=== PATIENT | female | born 1950 | race African-American/Black ===

== ENCOUNTER 2017-01-27 06:09 | Inpatient (IN) ==
[2017-01-27] MEDS ORDERED: ALBUTEROL 2.5 MG/3 ML NEB RESP TX STA (06:30)
[2017-01-27] MEDS ORDERED: predniSONE 20 MG TABLET PO STA (06:30)
[2017-01-27] MEDS ORDERED: ALBUTEROL 2.5 MG/3 ML NEB RESP TX ONE (07:09)
[2017-01-27 07:22] LABS: Basophils % 0.2 % (0.0-0.8); Eosinophils % 0.2 % (0.00-10.9); Hematocrit 38.1 VOL% (35.7-47.0); Hemoglobin 12.6 GM/DL (12.0-16.0); Immature Granulocytes % 0.4 %; Immature Granulocytes Absolute 0.02 #; Lymphocytes % 18.3 % (21.3-54.2); Mean Corpuscular HGB Conc 33.1 GM/DL (32-36); Mean Corpuscular Hemoglobin 30 PG (27-34); Mean Corpuscular Volume 89.6 FL (87-102); Mean Platelet Volume 10.2 FL (9.6-12.0); Monocytes # 0.4 10*3/uL (0.11-0.8); Monocytes % 6.2 % (1.7-12.7); Neutrophils # 4.2 10*3/uL (1.4-7.4); Neutrophils % 74.7 % (38.7-73.9); Platelet Count 200 T/CUMM (130-400); Red Blood Count 4.25 MC/CUMM (3.8-5.5); Red Cell Distribution Width 14.3 % (9.3-17.3); White Blood Count 5.7 T/CUMM (4-12)
[2017-01-27 08:11] LABS: Osmolality,Calculated 280.8 MOS/KG (273-304); Potassium 3.5 MMOL/L (3.5-5.1)
[2017-01-27] MEDS ORDERED: ACETAMINOPHEN 500 MG TABLET ONE (09:38)
[2017-01-27] MEDS ORDERED: ACETAMINOPHEN 500 MG TABLET PO STA (09:42)
[2017-01-27] MEDS ORDERED: predniSONE 20 MG TABLET ONE (09:44)
[2017-01-27] MEDS ORDERED: DILTIAZEM 100 MG VIAL.ADD IV ONE (10:13)
[2017-01-27] MEDS ORDERED: DILTIAZEM 50 MG/10 ML VIAL IV ONE (10:13)
[2017-01-27 10:23] LABS: Allen Test Positive
[2017-01-27 10:24] LABS: ABG Base Excess 5.7 MMOL/L (-2.5-2.5); ABG HCO3 29.6 MMOL/L (20-26); ABG Oxygen Saturation 95.5 % (95-100); ABG PCO2 50.6 MM HG (35-48); ABG PH 7.405 (7.35-7.45); ABG PO2 78.6 MM HG (80-95); ABG TCO2 28.1 MMOL/L (23-27)
[2017-01-27] MEDS ORDERED: ACETAMINOPHEN 325 MG TABLET PO PRN (11:15)
[2017-01-27] MEDS ORDERED: GLUCAGON 1 MG VIAL IM PRN (11:15)
[2017-01-27] MEDS ORDERED: MORPHINE 2 MG/1 ML SYRINGE IV PRN (11:15)
[2017-01-27] MEDS ORDERED: diphenhydrAMINE CAP 25 MG CAPSULE PO PRN (11:15)
[2017-01-27] MEDS ORDERED: ALBUTEROL 2.5 MG/3 ML NEB RESP TX PRN (11:15)
[2017-01-27] MEDS ORDERED: DEXTROSE 50% 25 GM/50 ML VIAL IV PRN (11:15)
[2017-01-27] MEDS ORDERED: DOCUSATE SODIUM 100 MG CAPSULE PO PRN (11:15)
[2017-01-27] MEDS ORDERED: ONDANSETRON 4 MG/2 ML VIAL IV PRN (11:15)
[2017-01-27] MEDS: ALBUTEROL/IPRATROPIUM 3 ML NEB RESP TX SCH ×2 (13:50→19:25)
[2017-01-27] MEDS ORDERED: SODIUM CHLORIDE 0.9% 1,000 ML IV SCH (14:00)
[2017-01-27] MEDS: ALLOPURINOL 100 MG TABLET PO SCH (14:07)
[2017-01-27] MEDS: ASPIRIN EC 81 MG TABLET PO SCH (14:07)
[2017-01-27] MEDS: LOSARTAN 50 MG TABLET PO SCH (14:07)
[2017-01-27] MEDS: BENZONATATE 100 MG CAPSULE PO SCH ×2 (14:07→22:33)
[2017-01-27] MEDS: PANTOPRAZOLE 40 MG TABLET PO SCH (14:08)
[2017-01-27] MEDS: FOLIC ACID 1 MG TABLET PO SCH (14:08)
[2017-01-27] MEDS: glipiZIDE 10 MG TABLET PO SCH (14:08)
[2017-01-27] MEDS: FUROSEMIDE 80 MG TABLET PO SCH (14:08)
[2017-01-27] MEDS: cefTRIAXone 1,000 MG in SYRINGE 1 EACH IV SCH (16:10)
[2017-01-27] MEDS: VERAPAMIL SR 180 MG TABLET PO SCH (16:13)
[2017-01-27] MEDS: AZITHROMYCIN INJ 500 MG in SODIUM CHLORIDE 0.9% 250 ML IV SCH (16:15)
[2017-01-27] MEDS: methylPREDNISolone SOD SUC 40 MG/1 ML VIAL IV SCH ×2 (17:20→22:40)
[2017-01-27] MEDS: INSULIN LISPRO 100 UNIT/ML SUBCUT SCH (17:20)
[2017-01-27] MEDS ORDERED: SIMVASTATIN 20 MG TABLET PO SCH (21:00)
[2017-01-27] MEDS ORDERED: ENOXAPARIN 40 MG/0.4 ML SYRINGE SUBCUT SCH (21:00)
[2017-01-27] MEDS ORDERED: DOXAZOSIN 4 MG TABLET PO SCH (21:00)
[2017-01-27] MEDS: ENALAPRIL 10 MG TABLET PO SCH (22:33)
[2017-01-27] MEDS: INSULIN REGULAR 100 UNIT/ML SUBCUT SCH (22:34)
[2017-01-27] MEDS: traMADol 50 MG TABLET PO SCH (22:34)
[2017-01-28] MEDS: ALBUTEROL/IPRATROPIUM 3 ML NEB RESP TX SCH ×2 (00:56→08:14)
[2017-01-28] MEDS: INSULIN REGULAR 100 UNIT/ML SUBCUT SCH ×2 (01:34→06:34)
[2017-01-28] MEDS: methylPREDNISolone SOD SUC 40 MG/1 ML VIAL IV SCH (06:34)
[2017-01-28] MEDS: AZITHROMYCIN INJ 500 MG in SODIUM CHLORIDE 0.9% 250 ML IV SCH (08:45)
[2017-01-28 08:58] LABS: Basophils % 0.2 % (0.0-0.8); Hematocrit 39.3 VOL% (35.7-47.0); Hemoglobin 12.8 GM/DL (12.0-16.0); Immature Granulocytes % 0.5 %; Immature Granulocytes Absolute 0.02 #; Lymphocytes # 1.2 10*3/uL (1.4-4.0); Lymphocytes % 27.6 % (21.3-54.2); Mean Corpuscular HGB Conc 32.6 GM/DL (32-36); Mean Corpuscular Hemoglobin 29 PG (27-34); Mean Corpuscular Volume 90.3 FL (87-102); Monocytes # 0.2 10*3/uL (0.11-0.8); Monocytes % 4.6 % (1.7-12.7); Neutrophils # 2.9 10*3/uL (1.4-7.4); Neutrophils % 67.1 % (38.7-73.9); Platelet Count 184 T/CUMM (130-400); Red Blood Count 4.35 MC/CUMM (3.8-5.5); White Blood Count 4.4 T/CUMM (4-12)
[2017-01-28] MEDS ORDERED: FERROUS GLUCONATE 324 MG TABLET PO SCH (09:00)
[2017-01-28] MEDS: INSULIN LISPRO 100 UNIT/ML SUBCUT SCH (09:40)
[2017-01-28 09:41] LABS: Calcium 8.3 MG/DL (8.5-10.1); Potassium 3.6 MMOL/L (3.5-5.1); Risk Ratio 4.41; Thyroid Stimulating Hormone 0.234 uIU/ml (0.358-3.74); VLDL CHOLESTEROL 34.8 MG/DL
[2017-01-28] MEDS: cefTRIAXone 1,000 MG in SYRINGE 1 EACH IV SCH (09:43)
[2017-01-28] MEDS: BENZONATATE 100 MG CAPSULE PO SCH (09:44)
[2017-01-28] MEDS: VERAPAMIL SR 180 MG TABLET PO SCH (09:44)
[2017-01-28] MEDS: LOSARTAN 50 MG TABLET PO SCH (09:44)
[2017-01-28] MEDS: ALLOPURINOL 100 MG TABLET PO SCH (09:45)
[2017-01-28] MEDS: glipiZIDE 10 MG TABLET PO SCH (09:45)
[2017-01-28] MEDS: traMADol 50 MG TABLET PO SCH (09:46)
[2017-01-28] MEDS: ENALAPRIL 10 MG TABLET PO SCH (09:47)
[2017-01-28] MEDS: ASPIRIN EC 81 MG TABLET PO SCH (09:47)
[2017-01-28] MEDS: FUROSEMIDE 80 MG TABLET PO SCH (09:47)
[2017-01-28] MEDS: FOLIC ACID 1 MG TABLET PO SCH (09:47)
[2017-01-28] MEDS: PANTOPRAZOLE 40 MG TABLET PO SCH (09:47)
[2017-01-28] MEDS ORDERED: INSULIN LISPRO 100 UNIT/ML SUBCUT SCH (11:30)
[2017-01-28 11:45] VITALS: BP 116/67
[2017-01-29] MEDS ORDERED: AZITHROMYCIN 250 MG TABLET PO SCH (09:00)
== END 2017-01-28 14:40 | disposition home or self-care (01) | DRG 190 ==
LOC: N.ED 06:09 → N.EDINP 10:36 → N.2E 13:09
PROVIDERS: ADMIT Internal Medicine; ATTEND Internal Medicine

== ENCOUNTER 2018-12-20 09:11 | Inpatient (IN) ==
[2018-12-20] MEDS ORDERED: ASPIRIN 325 MG TABLET PO STA (09:55)
[2018-12-20 10:01] LABS: Basophils % 0.3 % (0.0-0.8); Eosinophils % 0.4 % (0.00-10.9); Hematocrit 37.7 VOL% (35.7-47.0); Hemoglobin 11.9 GM/DL (12.0-16.0); Immature Granulocytes % 0.5 %; Immature Granulocytes Absolute 0.04 #; Lymphocytes # 1.3 10*3/uL (1.4-4.0); Lymphocytes % 16.5 % (21.3-54.2); Mean Corpuscular HGB Conc 31.6 GM/DL (32-36); Mean Corpuscular Volume 91.5 FL (87-102); Mean Platelet Volume 9.9 FL (9.6-12.0); Monocytes % 3.9 % (1.7-12.7); Neutrophils % 78.4 % (38.7-73.9); Platelet Count 203 T/CUMM (130-400); Red Blood Count 4.12 MC/CUMM (3.8-5.5); Red Cell Distribution Width 14.9 % (9.3-17.3); White Blood Count 7.7 T/CUMM (4-12)
[2018-12-20 10:11] LABS: PT Patient Result 10.6 SECS (9.6-12.2)
[2018-12-20 10:22] LABS: Calcium 8.3 MG/DL (8.5-10.1); Osmolality,Calculated 281.7 MOS/KG (273-304)
[2018-12-20] MEDS ORDERED: ONDANSETRON 4 MG/2 ML VIAL IV PRN (11:38)
[2018-12-20] MEDS ORDERED: MORPHINE 4 MG/1 ML VIAL IV PRN (11:38)
[2018-12-20 12:09] LABS: Thyroid Stimulating Hormone 0.687 uIU/ml (0.358-3.74); VLDL CHOLESTEROL 47.4 MG/DL
[2018-12-20] MEDS ORDERED: GLUCAGON 1 MG VIAL IM PRN (12:42)
[2018-12-20] MEDS ORDERED: DEXTROSE 10% 250 ML BAG IV PRN (12:42)
[2018-12-20] MEDS ORDERED: MAGNESIUM SULF RIDER 4 GM in PREMIX 1 EACH IV PRN (12:45)
[2018-12-20] MEDS ORDERED: MAGNESIUM SULF RIDER 2 GM in PREMIX 1 EACH IV PRN (12:45)
[2018-12-20] MEDS: ENOXAPARIN 150 MG/ML SYRINGE SUBCUT SCH (14:45)
[2018-12-20] MEDS: METOPROLOL TARTRATE 25 MG TABLET PO SCH ×2 (14:45→21:56)
[2018-12-20] MEDS ORDERED: MAGNESIUM SULF RIDER 4 GM in PREMIX 1 EACH IV ONE (15:47)
[2018-12-20] MEDS ORDERED: POTASSIUM CHLORIDE 20 MEQ TABLET PO ONE (15:47)
[2018-12-20] MEDS: INSULIN LISPRO 100 UNIT/ML SUBCUT SCH ×2 (16:15→21:55)
[2018-12-20] MEDS: POTASSIUM CHLORIDE 20 MEQ TABLET PO SCH (16:17)
[2018-12-20] MEDS ORDERED: ACETAMINOPHEN 325 MG TABLET PO PRN (17:50)
[2018-12-20] MEDS: ATORVASTATIN 40 MG TABLET PO SCH (21:56)
[2018-12-21] MEDS: ENOXAPARIN 150 MG/ML SYRINGE SUBCUT SCH ×4 (01:45→22:20)
[2018-12-21 05:47] LABS: Basophils % 0.1 % (0.0-0.8); Eosinophils # 0.1 10*3/uL (0.0-0.87); Eosinophils % 0.6 % (0.00-10.9); Hematocrit 35.6 VOL% (35.7-47.0); Hemoglobin 11.3 GM/DL (12.0-16.0); Immature Granulocytes % 0.5 %; Immature Granulocytes Absolute 0.04 #; Lymphocytes # 2.4 10*3/uL (1.4-4.0); Lymphocytes % 28.9 % (21.3-54.2); Mean Corpuscular HGB Conc 31.7 GM/DL (32-36); Mean Corpuscular Volume 90.8 FL (87-102); Mean Platelet Volume 9.8 FL (9.6-12.0); Monocytes % 7.6 % (1.7-12.7); Neutrophils % 62.3 % (38.7-73.9); Platelet Count 204 T/CUMM (130-400); Red Blood Count 3.92 MC/CUMM (3.8-5.5); Red Cell Distribution Width 14.8 % (9.3-17.3); White Blood Count 8.2 T/CUMM (4-12)
[2018-12-21 06:09] LABS: Calcium 8.8 MG/DL (8.5-10.1); Osmolality,Calculated 281.5 MOS/KG (273-304)
[2018-12-21] MEDS ORDERED: DIAZEPAM 5 MG TABLET PO ONE (07:52)
[2018-12-21] MEDS ORDERED: diphenhydrAMINE CAP 25 MG CAPSULE PO ONE (07:52)
[2018-12-21] MEDS ORDERED: POTASSIUM CHLORIDE RIDER 10 MEQ in PREMIX 1 EACH IV PRN (07:52)
[2018-12-21] MEDS ORDERED: ASPIRIN 325 MG TABLET PO ONE (07:52)
[2018-12-21] MEDS: INSULIN LISPRO 100 UNIT/ML SUBCUT SCH ×4 (08:31→22:21)
[2018-12-21] MEDS: PANTOPRAZOLE 40 MG TABLET PO SCH (09:33)
[2018-12-21] MEDS: POTASSIUM CHLORIDE 20 MEQ TABLET PO SCH (09:33)
[2018-12-21] MEDS: SODIUM CHLORIDE 0.9% 1,000 ML IV SCH ×2 (09:33→17:07)
[2018-12-21] MEDS: METOPROLOL TARTRATE 25 MG TABLET PO SCH ×2 (09:33→22:22)
[2018-12-21] MEDS ORDERED: NITROGLYCERIN DRIP 50 MG/250 ML BOTTLE IV ONE (10:33)
[2018-12-21] MEDS ORDERED: VERAPAMIL 5 MG/2 ML VIAL ONE (10:33)
[2018-12-21] MEDS ORDERED: LIDOCAINE 1% 20 ML VIAL ONE (10:33)
[2018-12-21] MEDS ORDERED: MIDAZOLAM 2 MG/2 ML VIAL ONE (10:35)
[2018-12-21] MEDS ORDERED: HYDROmorphone 2 MG/1 ML VIAL ONE (10:35)
[2018-12-21] MEDS ORDERED: GLUCAGON 1 MG VIAL IM PRN (13:52)
[2018-12-21] MEDS ORDERED: DEXTROSE 50% 25 GM/50 ML VIAL IV PRN (13:52)
[2018-12-21] MEDS ORDERED: SODIUM CHLORIDE 0.9% 1,000 ML IV SCH (14:00)
[2018-12-21 15:59] LABS: ABG Base Excess 2.8 MMOL/L (-2.5-2.5); ABG HCO3 26.8 MMOL/L (20-26); ABG Oxygen Saturation 93.7 % (95-100); ABG PCO2 43.1 MM HG (35-48); ABG PH 7.416 (7.35-7.45); ABG PO2 70.1 MM HG (80-95); ABG TCO2 24.6 MMOL/L (23-27)
[2018-12-21] MEDS: CHLORHEXIDINE 4% SOLN 118 ML BOTTLE TOP SCH ×2 (16:30→22:18)
[2018-12-21] MEDS: CHLORHEXIDINE 0.12% ORAL RINSE 60 ML BOTTLE SWISH/SPIT SCH (22:19)
[2018-12-21] MEDS: ENALAPRIL 20 MG TABLET PO SCH (22:21)
[2018-12-21] MEDS: ATORVASTATIN 40 MG TABLET PO SCH (22:22)
[2018-12-22 04:28] LABS: Basophils % 0.3 % (0.0-0.8); Eosinophils # 0.1 10*3/uL (0.0-0.87); Eosinophils % 0.8 % (0.00-10.9); Hematocrit 34.8 VOL% (35.7-47.0); Immature Granulocytes % 0.3 %; Immature Granulocytes Absolute 0.02 #; Lymphocytes # 2.1 10*3/uL (1.4-4.0); Lymphocytes % 27.2 % (21.3-54.2); Mean Corpuscular HGB Conc 31.6 GM/DL (32-36); Mean Corpuscular Volume 90.6 FL (87-102); Mean Platelet Volume 10.1 FL (9.6-12.0); Monocytes % 6.6 % (1.7-12.7); Neutrophils % 64.8 % (38.7-73.9); Platelet Count 197 T/CUMM (130-400); Red Blood Count 3.84 MC/CUMM (3.8-5.5); Red Cell Distribution Width 14.9 % (9.3-17.3); White Blood Count 7.7 T/CUMM (4-12)
[2018-12-22 04:45] LABS: Osmolality,Calculated 286.1 MOS/KG (273-304)
[2018-12-22] MEDS ORDERED: DIAZEPAM 5 MG TABLET PO ONE (05:00)
[2018-12-22] MEDS ORDERED: FAMOTIDINE 20 MG TABLET PO ONE (05:00)
[2018-12-22] MEDS ORDERED: PAPAVERINE 60 MG/2 ML VIAL ONE (05:26)
[2018-12-22] MEDS ORDERED: VANCOMYCIN 1,000 MG VIAL ONE (05:27)
[2018-12-22] MEDS ORDERED: VANCOMYCIN 500 MG VIAL ONE (05:27)
[2018-12-22] MEDS: ENALAPRIL 20 MG TABLET PO SCH ×2 (05:58→09:49)
[2018-12-22] MEDS: METOPROLOL TARTRATE 25 MG TABLET PO SCH ×2 (05:59→09:48)
[2018-12-22] MEDS ORDERED: CEFUROXIME INJ 1,500 MG in SYRINGE 1 EACH IV ONE (06:30)
[2018-12-22 07:44] LABS: ABG Base Excess 0.8 MMOL/L (-2.5-2.5); ABG HCO3 25.2 MMOL/L (20-26); ABG PCO2 35.9 MM HG (35-48); ABG PH 7.444 (7.35-7.45); ABG TCO2 22.2 MMOL/L (23-27); Glucose Heart Surgery 217 MG/DL (74-106); Hemoglobin Heart Surgery 10.4 G/DL (12.0-16.0); Ionized Calcium Arterial 1.13 MMOL/L (1.21-1.46); PCO2 Patient Temp Arterial 35.9 MMHG; PH Patient Temp Arterial 7.444; Patient Temperature 37 CELCIUS; Potassium Heart/CVR 3.8 MMOL/L (3.5-5.1); Sodium Heart/CVR 138 MMOL/L (135-145)
[2018-12-22 09:00] LABS: Apearance,Urine CLEAR (Clear); Bilirubin,Urine Negative (Negative); Blood, Urine Negative (Negative); Glucose,Urine (UA) 50 mg/dL (Negative); Ketones,Urine 5 mg/dL (Negative); Mucus,Urine Occasional /LPF (Occasional); Nitrite,Urine Negative (Negative); Protein,Urine Negative; RBC,Urine <1 /HPF (0-4); Squamous Epithelial Cell,Urine Occasional /HPF (0-10); Urine Color Yellow (Yellow); Urine Specific Gravity 1.029 (1.001-1.035); WBC,Urine <1 /HPF (0-6)
[2018-12-22] MEDS ORDERED: ASPIRIN CHEW 81 MG TABLET PO SCH (09:00)
[2018-12-22] MEDS ORDERED: POTASSIUM CHLORIDE RIDER 100 ML IV ONE (09:07)
[2018-12-22] MEDS ORDERED: PHENYLEPHRINE DRIP 40 MG/250 ML PREMIX IV ONE (09:07)
[2018-12-22 09:25] LABS: Hematocrit Heart Surgery 23.3 PERCENT (37-47); Hemoglobin Heart Surgery 7.5 G/DL (12.0-16.0); PCO2 Patient Temp Venous 36.9 MM HG; PH Patient Temp Venous 7.458; PO2 Patient Temp Venous 37.5 MM HG; Potassium Heart/CVR 4.3 MMOL/L (3.5-5.1); VBG Base Excess 2.3 MEQ/L (0-4); VBG HCO3 26.2 MEQ/L (24-28); VBG Oxygen Saturation 76.6 %; VBG PCO2 38.7 MMHG (41-51); VBG PH 7.443; VBG PO2 40.2 MMHG (17-40)
[2018-12-22] MEDS: INSULIN LISPRO 100 UNIT/ML SUBCUT SCH ×2 (09:48→14:04)
[2018-12-22] MEDS: ENOXAPARIN 150 MG/ML SYRINGE SUBCUT SCH (09:48)
[2018-12-22] MEDS: CHLORHEXIDINE 0.12% ORAL RINSE 60 ML BOTTLE SWISH/SPIT SCH (09:48)
[2018-12-22] MEDS: CHLORHEXIDINE 4% SOLN 118 ML BOTTLE TOP SCH (09:48)
[2018-12-22] MEDS: POTASSIUM CHLORIDE 20 MEQ TABLET PO SCH (09:48)
[2018-12-22] MEDS: PANTOPRAZOLE 40 MG TABLET PO SCH (09:49)
[2018-12-22 09:53] LABS: Hematocrit Heart Surgery 24.7 PERCENT (37-47); Hemoglobin Heart Surgery 7.9 G/DL (12.0-16.0); PCO2 Patient Temp Venous 31.2 MM HG; PH Patient Temp Venous 7.515; Potassium Heart/CVR 4.2 MMOL/L (3.5-5.1); VBG Base Excess 2.6 MEQ/L (0-4); VBG HCO3 26.4 MEQ/L (24-28); VBG Oxygen Saturation 73.9 %; VBG PCO2 36.1 MMHG (41-51); VBG PH 7.47
[2018-12-22] MEDS ORDERED: MAGNESIUM SULFATE 5 GM/10 ML VIAL IV ONE (10:25)
[2018-12-22] MEDS ORDERED: SODIUM BICARBONATE 50 MEQ/50 ML VIAL IV ONE (10:25)
[2018-12-22] MEDS ORDERED: DEXTROSE 5% KCL 20 MEQ 20 MEQ/1,000 ML BAG IV ONE (10:25)
[2018-12-22] MEDS ORDERED: PROTAMINE SULFATE 250 MG/25 ML VIAL IV ONE (10:25)
[2018-12-22] MEDS ORDERED: MANNITOL 100 GM/500 ML BAG IV ONE (10:25)
[2018-12-22] MEDS ORDERED: ALBUMIN 25% 25 GM/100 ML VIAL IV ONE (10:25)
[2018-12-22] MEDS ORDERED: FUROSEMIDE 20 MG/2 ML VIAL ONE (10:26)
[2018-12-22] MEDS ORDERED: PROTAMINE SULFATE 50 MG/5 ML VIAL IV ONE ×3 (10:26→11:50)
[2018-12-22] MEDS ORDERED: LIDOCAINE 2% 5 ML VIAL ONE (10:26)
[2018-12-22] MEDS ORDERED: HEPARIN 10,000 UNIT/10 ML VIAL ONE (10:26)
[2018-12-22] MEDS ORDERED: methylPREDNISolone SOD SUC 1,000 MG/8 ML VIAL ONE (10:27)
[2018-12-22 10:38] LABS: ABG Base Excess 2.1 MMOL/L (-2.5-2.5); ABG HCO3 26.3 MMOL/L (20-26); ABG Oxygen Saturation 99.9 % (95-100); ABG PCO2 34.3 MM HG (35-48); ABG PH 7.479 (7.35-7.45); ABG TCO2 23.9 MMOL/L (23-27); Glucose Heart Surgery 272 MG/DL (74-106); Hematocrit Heart Surgery 23.6 PERCENT (37-47); Hemoglobin Heart Surgery 7.6 G/DL (12.0-16.0); Ionized Calcium Arterial 1.36 MMOL/L (1.21-1.46); PCO2 Patient Temp Arterial 34.3 MMHG; PH Patient Temp Arterial 7.479; Patient Temperature 37 CELCIUS; Potassium Heart/CVR 3.5 MMOL/L (3.5-5.1); Sodium Heart/CVR 137 MMOL/L (135-145)
[2018-12-22] MEDS ORDERED: PHENYLEPHRINE DRIP 20 MG/250 ML PREMIX IV ONE (11:29)
[2018-12-22] MEDS ORDERED: HEPARIN/NACL 0.9% 2 UNITS/ML 500 ML IV ONE (11:29)
[2018-12-22] MEDS ORDERED: SUFentanil 250 MCG/5 ML AMP ONE ×2 (11:29→11:30)
[2018-12-22] MEDS ORDERED: SEVOFLURANE 1 UNIT/15 MINUTE INH ONE (11:29)
[2018-12-22] MEDS ORDERED: VECURONIUM 10 MG VIAL IV ONE (11:30)
[2018-12-22] MEDS ORDERED: MIDAZOLAM 10 MG/2 ML VIAL ONE ×2 (11:30)
[2018-12-22] MEDS ORDERED: NITROGLYCERIN DRIP 50 MG/250 ML BOTTLE IV ONE (11:30)
[2018-12-22] MEDS ORDERED: LACTATED RINGERS 1,000 ML IV ONE (11:31)
[2018-12-22] MEDS ORDERED: SODIUM CHLORIDE 0.9% 250 ML IV ONE (11:31)
[2018-12-22] MEDS ORDERED: AMINOCAPROIC ACID 5,000 MG/20 ML VIAL ONE (11:31)
[2018-12-22] MEDS ORDERED: PHENYLEPHRINE 1 MG/10 ML SYRINGE IV ONE (11:31)
[2018-12-22] MEDS ORDERED: SODIUM CHLORIDE 0.9% 2,000 ML IV ONE (11:31)
[2018-12-22] MEDS ORDERED: SODIUM CHLORIDE 0.9% 100 ML IV ONE (11:31)
[2018-12-22] MEDS ORDERED: MIDAZOLAM 2 MG/2 ML VIAL IV PRN (11:47)
[2018-12-22] MEDS ORDERED: MIDAZOLAM 10 MG/2 ML VIAL IV PRN (11:47)
[2018-12-22] MEDS ORDERED: MORPHINE 10 MG/1 ML VIAL IV PRN (11:47)
[2018-12-22] MEDS ORDERED: INSULIN REGULAR 100 UNIT/ML IV ONE (11:47)
[2018-12-22] MEDS ORDERED: LACTATED RINGERS 250 ML IV PRN (11:47)
[2018-12-22] MEDS ORDERED: MAGNESIUM SULF RIDER 2 GM in PREMIX 1 EACH IV PRN (11:47)
[2018-12-22] MEDS ORDERED: PHENYLEPHRINE DRIP 40 MG/250 ML PREMIX IV PRN (11:47)
[2018-12-22] MEDS ORDERED: ONDANSETRON 4 MG/2 ML VIAL IV PRN (11:47)
[2018-12-22] MEDS ORDERED: NITROPRUSSIDE 100 MG in DEXTROSE 5% 250 ML IV PRN (11:47)
[2018-12-22] MEDS ORDERED: MAGNESIUM SULF RIDER 4 GM in PREMIX 1 EACH IV PRN (11:47)
[2018-12-22] MEDS ORDERED: ACETAMINOPHEN 650 MG SUPP RECTAL PRN (11:47)
[2018-12-22] MEDS ORDERED: VECURONIUM 10 MG VIAL IV PRN ×2 (11:47)
[2018-12-22] MEDS ORDERED: MORPHINE 4 MG/1 ML VIAL IV PRN (11:47)
[2018-12-22] MEDS ORDERED: DEXTROSE 10% 25 GM/250 ML BAG IV PRN ×2 (11:47)
[2018-12-22] MEDS ORDERED: SODIUM CHLORIDE 0.45% 1,000 ML IV SCH ×2 (11:47)
[2018-12-22] MEDS: LACTATED RINGERS 1,000 ML IV PRN ×3 (12:00→17:50)
[2018-12-22] MEDS ORDERED: ALBUMIN 25% 25 GM in PREMIX 1 EACH IV ONE (12:00)
[2018-12-22 12:09] LABS: ABG Base Excess -0.1 MMOL/L (-2.5-2.5); ABG HCO3 24.4 MMOL/L (20-26); ABG Oxygen Saturation 99.2 % (95-100); ABG PCO2 41.8 MM HG (35-48); ABG PH 7.385 (7.35-7.45); ABG TCO2 23.1 MMOL/L (23-27); Glucose Heart Surgery 280 MG/DL (74-106); Hematocrit Heart Surgery 27.5 PERCENT (37-47); Hemoglobin Heart Surgery 8.9 G/DL (12.0-16.0); Potassium Heart/CVR 3.8 MMOL/L (3.5-5.1)
[2018-12-22] MEDS: CALCIUM CHLORIDE 1,000 MG/10 ML SYRINGE IV PRN ×2 (12:11→17:55)
[2018-12-22 12:15] LABS: Basophils % 0.1 % (0.0-0.8); Eosinophils # 0.1 10*3/uL (0.0-0.87); Eosinophils % 0.4 % (0.00-10.9); Hematocrit 27.3 VOL% (35.7-47.0); Hemoglobin 8.7 GM/DL (12.0-16.0); Immature Granulocytes % 0.7 %; Immature Granulocytes Absolute 0.09 #; Lymphocytes # 1.2 10*3/uL (1.4-4.0); Lymphocytes % 8.9 % (21.3-54.2); Mean Corpuscular HGB Conc 31.9 GM/DL (32-36); Mean Corpuscular Volume 91.3 FL (87-102); Mean Platelet Volume 9.9 FL (9.6-12.0); Monocytes % 4.6 % (1.7-12.7); Neutrophils % 85.3 % (38.7-73.9); Platelet Count 156 T/CUMM (130-400); Red Blood Count 2.99 MC/CUMM (3.8-5.5); Red Cell Distribution Width 14.7 % (9.3-17.3); White Blood Count 13.6 T/CUMM (4-12)
[2018-12-22 12:27] LABS: INR 1.1; PT Patient Result 11.4 SECS (9.6-12.2); Partial Thromboplastin Time 25.4 SECS (20.8-36.0)
[2018-12-22] MEDS: POTASSIUM CHLORIDE RIDER 20 MEQ in PREMIX 1 EACH IV PRN ×3 (12:27→20:45)
[2018-12-22] MEDS: INSULIN REGULAR DRIP 100 ML IV SCH ×3 (12:33→20:54)
[2018-12-22] MEDS ORDERED: methylPREDNISolone SOD SUC 125 MG/2 ML VIAL ONE (12:36)
[2018-12-22 12:56] LABS: CKMB % 2.8 %
[2018-12-22 12:58] LABS: Troponin I 14.3 NG/ML (0.00-0.045)
[2018-12-22] MEDS: KETOROLAC 30 MG/1 ML VIAL IV SCH ×3 (13:09→23:30)
[2018-12-22] MEDS: methylPREDNISolone SOD SUC 125 MG/2 ML VIAL IV SCH ×2 (13:09→18:07)
[2018-12-22 13:11] LABS: Albumin 2.8 G/DL (3.4-5.0); Bilirubin,Total 0.6 MG/DL (0.2-1.0); Calcium 9.9 MG/DL (8.5-10.1); Osmolality,Calculated 289.3 MOS/KG (273-304); Total Protein 5.9 G/DL (6.4-8.3)
[2018-12-22 13:33] LABS: ABG Base Excess -2.2 MMOL/L (-2.5-2.5); ABG HCO3 22.6 MMOL/L (20-26); ABG Oxygen Saturation 98.4 % (95-100); ABG PCO2 46.5 MM HG (35-48); ABG PH 7.323 (7.35-7.45); ABG TCO2 21.8 MMOL/L (23-27); Glucose Heart Surgery 269 MG/DL (74-106); Hematocrit Heart Surgery 34.2 PERCENT (37-47); Hemoglobin Heart Surgery 11.1 G/DL (12.0-16.0); Potassium Heart/CVR 4.2 MMOL/L (3.5-5.1)
[2018-12-22] MEDS: INSULIN REGULAR 100 UNIT/ML IV PRN ×5 (14:40→22:23)
[2018-12-22] MEDS ORDERED: ALBUMIN 25% 25 GM in PREMIX 1 EACH IV PRN (15:12)
[2018-12-22 16:15] LABS: ABG Base Excess -1.2 MMOL/L (-2.5-2.5); ABG HCO3 23.4 MMOL/L (20-26); ABG Oxygen Saturation 96.5 % (95-100); ABG PCO2 49.1 MM HG (35-48); ABG PO2 90.5 MM HG (80-95); ABG TCO2 23.2 MMOL/L (23-27); Glucose Heart Surgery 279 MG/DL (74-106); Hematocrit Heart Surgery 30.8 PERCENT (37-47); Hemoglobin Heart Surgery 9.9 G/DL (12.0-16.0); Potassium Heart/CVR 3.7 MMOL/L (3.5-5.1)
[2018-12-22] MEDS: POTASSIUM CHLORIDE RIDER 10 MEQ in PREMIX 1 EACH IV PRN ×2 (17:30→21:21)
[2018-12-22] MEDS ORDERED: FUROSEMIDE 40 MG/4 ML VIAL IV PRN (18:28)
[2018-12-22] MEDS: CEFUROXIME INJ 1,500 MG in SYRINGE 1 EACH IV SCH (19:30)
[2018-12-22 20:10] LABS: ABG Base Excess -2.6 MMOL/L (-2.5-2.5); ABG HCO3 22.2 MMOL/L (20-26); ABG PH 7.384 (7.35-7.45); ABG TCO2 20.3 MMOL/L (23-27); Glucose Heart Surgery 193 MG/DL (74-106); Hematocrit Heart Surgery 28.5 PERCENT (37-47); Hemoglobin Heart Surgery 9.2 G/DL (12.0-16.0); Potassium Heart/CVR 3.8 MMOL/L (3.5-5.1)
[2018-12-22 20:53] LABS: CKMB % 2.7 %; Troponin I 10.1 NG/ML (0.00-0.045)
[2018-12-22] MEDS ORDERED: CHLORHEXIDINE 0.12% ORAL RINSE 60 ML BOTTLE SWISH/SPIT SCH (21:00)
[2018-12-22 21:09] LABS: ABG Base Excess -1.1 MMOL/L (-2.5-2.5); ABG HCO3 23.5 MMOL/L (20-26); ABG Oxygen Saturation 98.3 % (95-100); ABG PCO2 39.6 MM HG (35-48); ABG PH 7.386 (7.35-7.45); ABG TCO2 21.9 MMOL/L (23-27); Glucose Heart Surgery 169 MG/DL (74-106); Hematocrit Heart Surgery 28.2 PERCENT (37-47); Hemoglobin Heart Surgery 9.1 G/DL (12.0-16.0); Potassium Heart/CVR 4.2 MMOL/L (3.5-5.1)
[2018-12-22 21:55] LABS: ABG Base Excess -1.2 MMOL/L (-2.5-2.5); ABG HCO3 23.4 MMOL/L (20-26); ABG Oxygen Saturation 98.6 % (95-100); ABG PCO2 38.8 MM HG (35-48); ABG TCO2 21.6 MMOL/L (23-27); Glucose Heart Surgery 149 MG/DL (74-106); Hematocrit Heart Surgery 28.1 PERCENT (37-47); Potassium Heart/CVR 4.4 MMOL/L (3.5-5.1)
[2018-12-22 22:50] LABS: ABG Base Excess -0.6 MMOL/L (-2.5-2.5); ABG Oxygen Saturation 98.5 % (95-100); ABG PCO2 39.6 MM HG (35-48); ABG PH 7.394 (7.35-7.45); ABG TCO2 22.3 MMOL/L (23-27); Glucose Heart Surgery 120 MG/DL (74-106); Hematocrit Heart Surgery 27.8 PERCENT (37-47); Potassium Heart/CVR 4.1 MMOL/L (3.5-5.1)
[2018-12-23 00:21] LABS: ABG Base Excess 0.5 MMOL/L (-2.5-2.5); ABG Oxygen Saturation 96.3 % (95-100); ABG PCO2 39.7 MM HG (35-48); ABG PH 7.417 (7.35-7.45); ABG PO2 85.8 MM HG (80-95); ABG TCO2 26.2 MMOL/L (23-27); Glucose Heart Surgery 77 MG/DL (74-106); Hemoglobin Heart Surgery 9.4 G/DL (12.0-16.0)
[2018-12-23] MEDS: methylPREDNISolone SOD SUC 125 MG/2 ML VIAL IV SCH ×2 (00:40→06:25)
[2018-12-23] MEDS: POTASSIUM CHLORIDE RIDER 20 MEQ in PREMIX 1 EACH IV PRN ×2 (00:44→03:49)
[2018-12-23] MEDS: POTASSIUM CHLORIDE RIDER 10 MEQ in PREMIX 1 EACH IV PRN (00:44)
[2018-12-23] MEDS: INSULIN REGULAR DRIP 100 ML IV SCH (02:16)
[2018-12-23 03:40] LABS: ABG Base Excess -1.1 MMOL/L (-2.5-2.5); ABG HCO3 23.3 MMOL/L (20-26); ABG Oxygen Saturation 95.8 % (95-100); ABG PCO2 37.4 MM HG (35-48); ABG PH 7.412 (7.35-7.45); ABG PO2 80.7 MM HG (80-95); ABG TCO2 24.4 MMOL/L (23-27); Glucose Heart Surgery 158 MG/DL (74-106); Hemoglobin Heart Surgery 9.4 G/DL (12.0-16.0); Potassium Heart/CVR 4.1 MMOL/L (3.5-5.1)
[2018-12-23 03:47] LABS: Basophils % 0.1 % (0.0-0.8); Hemoglobin 8.8 GM/DL (12.0-16.0); Immature Granulocytes % 0.4 %; Immature Granulocytes Absolute 0.05 #; Lymphocytes # 0.6 10*3/uL (1.4-4.0); Lymphocytes % 5.5 % (21.3-54.2); Mean Corpuscular HGB Conc 32.6 GM/DL (32-36); Mean Corpuscular Volume 88.8 FL (87-102); Mean Platelet Volume 9.9 FL (9.6-12.0); Monocytes % 2.8 % (1.7-12.7); Neutrophils % 91.2 % (38.7-73.9); Platelet Count 159 T/CUMM (130-400); Red Blood Count 3.04 MC/CUMM (3.8-5.5); Red Cell Distribution Width 15.2 % (9.3-17.3); White Blood Count 11.6 T/CUMM (4-12)
[2018-12-23 04:04] LABS: Albumin 3.1 G/DL (3.4-5.0); Bilirubin,Direct 0.17 MG/DL (0.0-0.20); Bilirubin,Total 0.5 MG/DL (0.2-1.0); Calcium 8.9 MG/DL (8.5-10.1); Total Protein 6.2 G/DL (6.4-8.3)
[2018-12-23 04:05] LABS: CKMB % 2.1 %
[2018-12-23 04:08] LABS: Troponin I 7.3 NG/ML (0.00-0.045)
[2018-12-23 04:34] LABS: Lymphocytes 5 % (20-55); Platelet Estimate Adequate; Segmented Neutrophils 92 % (50-85); Total Cells Counted 100
[2018-12-23 04:35] LABS: Hypochromasia 1+
[2018-12-23] MEDS: KETOROLAC 30 MG/1 ML VIAL IV SCH ×3 (06:30→17:10)
[2018-12-23 07:36] LABS: ABG Base Excess -0.5 MMOL/L (-2.5-2.5); ABG HCO3 23.6 MMOL/L (20-26); ABG Oxygen Saturation 95.5 % (95-100); ABG PCO2 36.3 MM HG (35-48); ABG PO2 79.6 MM HG (80-95); ABG TCO2 24.7 MMOL/L (23-27); Glucose Heart Surgery 134 MG/DL (74-106); Hemoglobin Heart Surgery 10.1 G/DL (12.0-16.0); Potassium Heart/CVR 4.9 MMOL/L (3.5-5.1)
[2018-12-23] MEDS: INSULIN REGULAR 100 UNIT/ML SUBCUT SCH ×5 (07:42→21:13)
[2018-12-23] MEDS ORDERED: ONDANSETRON 4 MG/2 ML VIAL IV PRN (07:51)
[2018-12-23] MEDS ORDERED: MAGNESIUM HYDROXIDE SUSP 30 ML UDCUP PO PRN (07:51)
[2018-12-23] MEDS ORDERED: DEXTROSE 10% 25 GM/250 ML BAG IV PRN (07:51)
[2018-12-23] MEDS ORDERED: ACETAMINOPHEN 325 MG TABLET PO PRN (07:51)
[2018-12-23] MEDS ORDERED: GLUCAGON 1 MG VIAL IM PRN ×2 (07:51)
[2018-12-23] MEDS ORDERED: MAGNESIUM SULF RIDER 4 GM in PREMIX 1 EACH IV PRN (07:51)
[2018-12-23] MEDS ORDERED: DEXTROSE 50% 25 GM/50 ML VIAL IV PRN (07:51)
[2018-12-23] MEDS ORDERED: MAGNESIUM SULF RIDER 2 GM in PREMIX 1 EACH IV PRN (07:51)
[2018-12-23] MEDS: CEFUROXIME INJ 1,500 MG in SYRINGE 1 EACH IV SCH (07:57)
[2018-12-23] MEDS: methylPREDNISolone SOD SUC 40 MG/1 ML VIAL IV SCH ×2 (08:37→18:52)
[2018-12-23] MEDS ORDERED: AMOXICILLIN 500 MG PO SCH (09:00)
[2018-12-23] MEDS ORDERED: EXENATIDE 10 MCG SUBCUT SCH (09:00)
[2018-12-23] MEDS: SODIUM CHLOR 0.45% KCL 20 MEQ 20 MEQ/1,000 ML BAG IV SCH (09:04)
[2018-12-23] MEDS: FOLIC ACID 1 MG TABLET PO SCH (09:09)
[2018-12-23] MEDS: ASPIRIN EC 81 MG TABLET PO SCH (09:09)
[2018-12-23] MEDS: DOCUSATE SODIUM 100 MG CAPSULE PO SCH (09:10)
[2018-12-23] MEDS: FERROUS SULFATE 325 MG TABLET PO SCH (09:10)
[2018-12-23] MEDS: VITAMIN E 400 UNIT CAPSULE PO SCH (09:11)
[2018-12-23] MEDS: glipiZIDE 10 MG TABLET PO SCH (09:11)
[2018-12-23] MEDS: CHOLECALCIFEROL 1,000 UNIT TABLET PO SCH (09:12)
[2018-12-23] MEDS: sitaGLIPtin 100 MG TABLET PO SCH (09:12)
[2018-12-23] MEDS: PANTOPRAZOLE 40 MG TABLET PO SCH (09:13)
[2018-12-23] MEDS: CHLORHEXIDINE 0.12% ORAL RINSE 60 ML BOTTLE SWISH/SPIT SCH ×2 (09:13→21:15)
[2018-12-23] MEDS: metFORMIN 500 MG TABLET PO SCH ×2 (09:15→21:08)
[2018-12-23] MEDS: FERROUS GLUCONATE 324 MG TABLET PO SCH ×2 (09:16→21:07)
[2018-12-23] MEDS: ALLOPURINOL 100 MG TABLET PO SCH ×2 (09:17→21:13)
[2018-12-23] MEDS: oxyCODONE/ACETAMINOPHEN 5-325 MG TABLET PO PRN ×2 (10:27→21:08)
[2018-12-23] MEDS: ALBUTEROL/IPRATROPIUM 3 ML NEB RESP TX SCH ×3 (10:28→22:49)
[2018-12-23] MEDS: DOXAZOSIN 4 MG TABLET PO SCH (21:06)
[2018-12-23] MEDS: FEXOFENADINE 180 MG TABLET PO SCH (21:07)
[2018-12-23] MEDS: MONTELUKAST 10 MG TABLET PO SCH (21:07)
[2018-12-24] MEDS: INSULIN REGULAR 100 UNIT/ML SUBCUT SCH ×6 (00:23→20:23)
[2018-12-24 04:51] LABS: Basophils % 0.2 % (0.0-0.8); Hemoglobin 8.4 GM/DL (12.0-16.0); Immature Granulocytes % 0.5 %; Immature Granulocytes Absolute 0.06 #; Lymphocytes # 1.5 10*3/uL (1.4-4.0); Lymphocytes % 12.8 % (21.3-54.2); Mean Corpuscular HGB Conc 32.3 GM/DL (32-36); Mean Corpuscular Volume 90.9 FL (87-102); Mean Platelet Volume 10.7 FL (9.6-12.0); Neutrophils % 78.5 % (38.7-73.9); Platelet Count 141 T/CUMM (130-400); Red Blood Count 2.86 MC/CUMM (3.8-5.5); Red Cell Distribution Width 15.4 % (9.3-17.3); White Blood Count 11.4 T/CUMM (4-12)
[2018-12-24 05:24] LABS: Alanine Aminotransferase 16 U/L (13-56); Albumin 2.7 G/DL (3.4-5.0); Alkaline Phosphatase 48 U/L (45-117); Aspartate Amino Transferase 13 U/L (0-37); Bilirubin,Indirect 0.3 MG/DL (0.0-1.0); Blood Urea Nitrogen 23 MG/DL (7-18); Calcium 8.6 MG/DL (8.5-10.1); Estimated Glom Filtration Rate 96 ML/MIN; Glucose 215 MG/DL (74-106); Osmolality,Calculated 286.5 MOS/KG (273-304)
[2018-12-24] MEDS ORDERED: FUROSEMIDE 40 MG/4 ML VIAL IV ONE (06:00)
[2018-12-24] MEDS: methylPREDNISolone SOD SUC 40 MG/1 ML VIAL IV SCH ×2 (06:55→18:51)
[2018-12-24] MEDS: ALBUTEROL/IPRATROPIUM 3 ML NEB RESP TX SCH ×3 (07:02→23:03)
[2018-12-24] MEDS: FERROUS SULFATE 325 MG TABLET PO SCH (08:47)
[2018-12-24] MEDS: DOCUSATE SODIUM 100 MG CAPSULE PO SCH (08:47)
[2018-12-24] MEDS: sitaGLIPtin 100 MG TABLET PO SCH (08:48)
[2018-12-24] MEDS: FERROUS GLUCONATE 324 MG TABLET PO SCH ×2 (08:48→20:16)
[2018-12-24] MEDS: metFORMIN 500 MG TABLET PO SCH ×2 (08:48→20:12)
[2018-12-24] MEDS: ALLOPURINOL 100 MG TABLET PO SCH ×2 (08:48→20:12)
[2018-12-24] MEDS: CHOLECALCIFEROL 1,000 UNIT TABLET PO SCH (08:48)
[2018-12-24] MEDS: glipiZIDE 10 MG TABLET PO SCH (08:48)
[2018-12-24] MEDS: ASPIRIN EC 81 MG TABLET PO SCH (08:48)
[2018-12-24] MEDS: PANTOPRAZOLE 40 MG TABLET PO SCH (08:48)
[2018-12-24] MEDS: VITAMIN E 400 UNIT CAPSULE PO SCH (08:48)
[2018-12-24] MEDS: FOLIC ACID 1 MG TABLET PO SCH (08:48)
[2018-12-24] MEDS: CHLORHEXIDINE 0.12% ORAL RINSE 60 ML BOTTLE SWISH/SPIT SCH ×2 (08:49→20:23)
[2018-12-24] MEDS: SODIUM CHLOR 0.45% KCL 20 MEQ 20 MEQ/1,000 ML BAG IV SCH (09:11)
[2018-12-24] MEDS: oxyCODONE/ACETAMINOPHEN 5-325 MG TABLET PO PRN ×3 (10:18→20:12)
[2018-12-24] MEDS: ALUMINUM/MAGNES/SIMETH MAX STR 30 ML UDCUP PO PRN (20:11)
[2018-12-24] MEDS: DOXAZOSIN 4 MG TABLET PO SCH (20:12)
[2018-12-24] MEDS: MONTELUKAST 10 MG TABLET PO SCH (20:13)
[2018-12-24] MEDS: FEXOFENADINE 180 MG TABLET PO SCH (20:13)
[2018-12-25] MEDS: INSULIN REGULAR 100 UNIT/ML SUBCUT SCH ×6 (01:16→21:42)
[2018-12-25] MEDS ORDERED: AMIODARONE INJ 150 MG in DEXTROSE 5% 100 ML IV ONE (01:54)
[2018-12-25] MEDS ORDERED: AMIODARONE INJ 450 MG in DEXTROSE 5% 241 ML IV SCH (02:00)
[2018-12-25 06:03] LABS: Basophils % 0.1 % (0.0-0.8); Eosinophils % 0.2 % (0.00-10.9); Hematocrit 26.2 VOL% (35.7-47.0); Hemoglobin 8.2 GM/DL (12.0-16.0); Immature Granulocytes % 0.8 %; Immature Granulocytes Absolute 0.08 #; Lymphocytes # 1.9 10*3/uL (1.4-4.0); Mean Corpuscular HGB Conc 31.3 GM/DL (32-36); Mean Corpuscular Volume 93.2 FL (87-102); Mean Platelet Volume 10.3 FL (9.6-12.0); Monocytes % 6.6 % (1.7-12.7); Neutrophils % 74.3 % (38.7-73.9); Platelet Count 130 T/CUMM (130-400); Red Blood Count 2.81 MC/CUMM (3.8-5.5); Red Cell Distribution Width 15.4 % (9.3-17.3); White Blood Count 10.6 T/CUMM (4-12)
[2018-12-25 06:40] LABS: Alanine Aminotransferase 13 U/L (13-56); Albumin 2.8 G/DL (3.4-5.0); Alkaline Phosphatase 50 U/L (45-117); Aspartate Amino Transferase 8 U/L (0-37); Bilirubin,Indirect 0.3 MG/DL (0.0-1.0); Blood Urea Nitrogen 19 MG/DL (7-18); Calcium 8.5 MG/DL (8.5-10.1); Estimated Glom Filtration Rate 109 ML/MIN; Glucose 182 MG/DL (74-106); Osmolality,Calculated 285.4 MOS/KG (273-304); Total Protein 6.4 G/DL (6.4-8.3)
[2018-12-25] MEDS: ALBUTEROL/IPRATROPIUM 3 ML NEB RESP TX SCH ×2 (07:24→17:31)
[2018-12-25] MEDS: FOLIC ACID 1 MG TABLET PO SCH (09:40)
[2018-12-25] MEDS: glipiZIDE 10 MG TABLET PO SCH (09:40)
[2018-12-25] MEDS: AMIODARONE 200 MG TABLET PO SCH ×2 (09:40→21:40)
[2018-12-25] MEDS: VITAMIN E 400 UNIT CAPSULE PO SCH (09:40)
[2018-12-25] MEDS: ROSUVASTATIN 20 MG TABLET PO SCH (09:40)
[2018-12-25] MEDS: PANTOPRAZOLE 40 MG TABLET PO SCH (09:41)
[2018-12-25] MEDS: metFORMIN 500 MG TABLET PO SCH ×2 (09:41→21:41)
[2018-12-25] MEDS: FERROUS GLUCONATE 324 MG TABLET PO SCH ×2 (09:41→21:41)
[2018-12-25] MEDS: CHOLECALCIFEROL 1,000 UNIT TABLET PO SCH (09:41)
[2018-12-25] MEDS: carvediloL 3.125 MG TABLET PO SCH ×2 (09:41→21:39)
[2018-12-25] MEDS: ALLOPURINOL 100 MG TABLET PO SCH ×2 (09:41→21:40)
[2018-12-25] MEDS: APIXABAN 5 MG TABLET PO SCH ×2 (09:41→21:39)
[2018-12-25] MEDS: DOCUSATE SODIUM 100 MG CAPSULE PO SCH (09:42)
[2018-12-25] MEDS: LOSARTAN 25 MG TABLET PO SCH ×2 (09:42→21:48)
[2018-12-25] MEDS: FERROUS SULFATE 325 MG TABLET PO SCH (09:42)
[2018-12-25] MEDS: sitaGLIPtin 100 MG TABLET PO SCH (09:42)
[2018-12-25] MEDS: ASPIRIN EC 81 MG TABLET PO SCH (09:42)
[2018-12-25] MEDS: CHLORHEXIDINE 0.12% ORAL RINSE 60 ML BOTTLE SWISH/SPIT SCH ×2 (09:47→21:45)
[2018-12-25] MEDS: oxyCODONE/ACETAMINOPHEN 5-325 MG TABLET PO PRN ×2 (10:41→20:36)
[2018-12-25] MEDS: ALUMINUM/MAGNES/SIMETH MAX STR 30 ML UDCUP PO PRN (20:36)
[2018-12-25] MEDS: FEXOFENADINE 180 MG TABLET PO SCH (21:39)
[2018-12-25] MEDS: MONTELUKAST 10 MG TABLET PO SCH (21:40)
[2018-12-25] MEDS: INSULIN GLARGINE 100 UNIT/ML SUBCUT SCH (21:41)
[2018-12-25] MEDS: DOXAZOSIN 4 MG TABLET PO SCH (21:54)
[2018-12-26] MEDS: INSULIN REGULAR 100 UNIT/ML SUBCUT SCH ×6 (00:18→20:30)
[2018-12-26] MEDS: ALBUTEROL/IPRATROPIUM 3 ML NEB RESP TX SCH ×4 (00:19→23:31)
[2018-12-26] MEDS: sitaGLIPtin 100 MG TABLET PO SCH (08:22)
[2018-12-26] MEDS: metFORMIN 500 MG TABLET PO SCH ×2 (08:22→20:23)
[2018-12-26] MEDS: VITAMIN E 400 UNIT CAPSULE PO SCH (08:22)
[2018-12-26] MEDS: FOLIC ACID 1 MG TABLET PO SCH (08:22)
[2018-12-26] MEDS: AMIODARONE 200 MG TABLET PO SCH ×2 (08:22→20:23)
[2018-12-26] MEDS: ROSUVASTATIN 20 MG TABLET PO SCH (08:22)
[2018-12-26] MEDS: glipiZIDE 10 MG TABLET PO SCH (08:22)
[2018-12-26] MEDS: APIXABAN 5 MG TABLET PO SCH ×2 (08:23→20:23)
[2018-12-26] MEDS: DOCUSATE SODIUM 100 MG CAPSULE PO SCH (08:23)
[2018-12-26] MEDS: FERROUS SULFATE 325 MG TABLET PO SCH (08:23)
[2018-12-26] MEDS: CHOLECALCIFEROL 1,000 UNIT TABLET PO SCH (08:23)
[2018-12-26] MEDS: carvediloL 3.125 MG TABLET PO SCH ×2 (08:23→20:23)
[2018-12-26] MEDS: ALLOPURINOL 100 MG TABLET PO SCH ×2 (08:23→20:24)
[2018-12-26] MEDS: CHLORHEXIDINE 0.12% ORAL RINSE 60 ML BOTTLE SWISH/SPIT SCH ×2 (08:23→20:25)
[2018-12-26] MEDS: LOSARTAN 25 MG TABLET PO SCH ×2 (08:23→20:22)
[2018-12-26] MEDS: ASPIRIN EC 81 MG TABLET PO SCH (08:23)
[2018-12-26] MEDS: PANTOPRAZOLE 40 MG TABLET PO SCH (08:23)
[2018-12-26] MEDS: FERROUS GLUCONATE 324 MG TABLET PO SCH ×2 (08:28→20:23)
[2018-12-26] MEDS: oxyCODONE/ACETAMINOPHEN 5-325 MG TABLET PO PRN ×2 (12:08→20:23)
[2018-12-26] MEDS: DOXAZOSIN 4 MG TABLET PO SCH (20:23)
[2018-12-26] MEDS: INSULIN GLARGINE 100 UNIT/ML SUBCUT SCH (20:29)
[2018-12-26] MEDS: MONTELUKAST 10 MG TABLET PO SCH (20:32)
[2018-12-26] MEDS: FEXOFENADINE 180 MG TABLET PO SCH (20:32)
[2018-12-27 04:28] LABS: Basophils % 0.1 % (0.0-0.8); Eosinophils # 0.1 10*3/uL (0.0-0.87); Eosinophils % 1.3 % (0.00-10.9); Hematocrit 29.4 VOL% (35.7-47.0); Immature Granulocytes % 0.9 %; Immature Granulocytes Absolute 0.07 #; Lymphocytes # 2.1 10*3/uL (1.4-4.0); Lymphocytes % 25.9 % (21.3-54.2); Mean Corpuscular HGB Conc 30.6 GM/DL (32-36); Mean Corpuscular Volume 94.5 FL (87-102); Mean Platelet Volume 9.4 FL (9.6-12.0); Monocytes % 6.9 % (1.7-12.7); Neutrophils % 64.9 % (38.7-73.9); Platelet Count 194 T/CUMM (130-400); Red Blood Count 3.11 MC/CUMM (3.8-5.5); Red Cell Distribution Width 14.7 % (9.3-17.3)
[2018-12-27 04:47] LABS: Alanine Aminotransferase 16 U/L (13-56); Albumin 2.5 G/DL (3.4-5.0); Alkaline Phosphatase 58 U/L (45-117); Aspartate Amino Transferase 10 U/L (0-37); Bilirubin,Indirect 0.3 MG/DL (0.0-1.0); Blood Urea Nitrogen 17 MG/DL (7-18); Estimated Glom Filtration Rate 126 ML/MIN; Glucose 155 MG/DL (74-106); Osmolality,Calculated 277.8 MOS/KG (273-304); Total Protein 6.3 G/DL (6.4-8.3)
[2018-12-27] MEDS: INSULIN REGULAR 100 UNIT/ML SUBCUT SCH ×6 (05:02→20:48)
[2018-12-27 07:08] LABS: Eosinophils 1 % (0-10); Lymphocytes 23 % (20-55); Polychromasia Slight; Segmented Neutrophils 74 % (50-85); Total Cells Counted 100
[2018-12-27 07:09] LABS: Hypochromasia 1+
[2018-12-27 07:11] LABS: Anisocytosis 1+; Macrocytosis Slight; Microcytosis Slight; Platelet Estimate Adequate
[2018-12-27] MEDS: ALBUTEROL/IPRATROPIUM 3 ML NEB RESP TX SCH ×3 (08:19→23:37)
[2018-12-27] MEDS: FOLIC ACID 1 MG TABLET PO SCH (09:06)
[2018-12-27] MEDS: LOSARTAN 25 MG TABLET PO SCH ×2 (09:07→20:50)
[2018-12-27] MEDS: ROSUVASTATIN 20 MG TABLET PO SCH (09:07)
[2018-12-27] MEDS: VITAMIN E 400 UNIT CAPSULE PO SCH (09:07)
[2018-12-27] MEDS: ALLOPURINOL 100 MG TABLET PO SCH ×2 (09:07→20:50)
[2018-12-27] MEDS: metFORMIN 500 MG TABLET PO SCH ×2 (09:07→20:49)
[2018-12-27] MEDS: glipiZIDE 10 MG TABLET PO SCH (09:07)
[2018-12-27] MEDS: FERROUS GLUCONATE 324 MG TABLET PO SCH ×2 (09:08→20:50)
[2018-12-27] MEDS: CHLORHEXIDINE 0.12% ORAL RINSE 60 ML BOTTLE SWISH/SPIT SCH ×2 (09:08→20:53)
[2018-12-27] MEDS: APIXABAN 5 MG TABLET PO SCH ×2 (09:08→20:49)
[2018-12-27] MEDS: ASPIRIN EC 81 MG TABLET PO SCH (09:08)
[2018-12-27] MEDS: sitaGLIPtin 100 MG TABLET PO SCH (09:08)
[2018-12-27] MEDS: CHOLECALCIFEROL 1,000 UNIT TABLET PO SCH (09:08)
[2018-12-27] MEDS: DOCUSATE SODIUM 100 MG CAPSULE PO SCH (09:08)
[2018-12-27] MEDS: PANTOPRAZOLE 40 MG TABLET PO SCH (09:08)
[2018-12-27] MEDS: FERROUS SULFATE 325 MG TABLET PO SCH (09:08)
[2018-12-27] MEDS: AMIODARONE 200 MG TABLET PO SCH ×2 (09:08→20:49)
[2018-12-27] MEDS: carvediloL 3.125 MG TABLET PO SCH ×2 (09:08→20:50)
[2018-12-27] MEDS: oxyCODONE/ACETAMINOPHEN 5-325 MG TABLET PO PRN ×3 (09:51→20:50)
[2018-12-27] MEDS: INSULIN GLARGINE 100 UNIT/ML SUBCUT SCH (20:49)
[2018-12-27] MEDS: MONTELUKAST 10 MG TABLET PO SCH (20:50)
[2018-12-27] MEDS: FEXOFENADINE 180 MG TABLET PO SCH (20:50)
[2018-12-27] MEDS: DOXAZOSIN 4 MG TABLET PO SCH (20:50)
[2018-12-28] MEDS: INSULIN REGULAR 100 UNIT/ML SUBCUT SCH ×6 (00:36→20:23)
[2018-12-28 04:45] LABS: Basophils % 0.1 % (0.0-0.8); Eosinophils # 0.1 10*3/uL (0.0-0.87); Eosinophils % 1.1 % (0.00-10.9); Hematocrit 28.7 VOL% (35.7-47.0); Hemoglobin 8.9 GM/DL (12.0-16.0); Immature Granulocytes % 1.1 %; Immature Granulocytes Absolute 0.08 #; Lymphocytes # 1.8 10*3/uL (1.4-4.0); Mean Corpuscular Volume 94.4 FL (87-102); Mean Platelet Volume 9.7 FL (9.6-12.0); Monocytes % 6.9 % (1.7-12.7); Neutrophils % 65.8 % (38.7-73.9); Platelet Count 217 T/CUMM (130-400); Red Blood Count 3.04 MC/CUMM (3.8-5.5); Red Cell Distribution Width 14.9 % (9.3-17.3); White Blood Count 7.2 T/CUMM (4-12)
[2018-12-28 05:07] LABS: Alanine Aminotransferase 16 U/L (13-56); Albumin 2.5 G/DL (3.4-5.0); Alkaline Phosphatase 53 U/L (45-117); Aspartate Amino Transferase 6 U/L (0-37); Bilirubin,Direct < 0.100 MG/DL (0.0-0.20); Bilirubin,Indirect 0.3 MG/DL (0.0-1.0); Blood Urea Nitrogen 14 MG/DL (7-18); Calcium 7.9 MG/DL (8.5-10.1); Estimated Glom Filtration Rate 149 ML/MIN; Glucose 127 MG/DL (74-106); Osmolality,Calculated 277.7 MOS/KG (273-304)
[2018-12-28 05:08] LABS: Troponin I 0.706 NG/ML (0.00-0.045)
[2018-12-28] MEDS: ALBUTEROL/IPRATROPIUM 3 ML NEB RESP TX SCH ×2 (07:35→14:11)
[2018-12-28] MEDS: metFORMIN 500 MG TABLET PO SCH ×2 (10:09→20:22)
[2018-12-28] MEDS: AMIODARONE 200 MG TABLET PO SCH ×2 (10:10→20:21)
[2018-12-28] MEDS: glipiZIDE 10 MG TABLET PO SCH (10:10)
[2018-12-28] MEDS: FOLIC ACID 1 MG TABLET PO SCH (10:10)
[2018-12-28] MEDS: ASPIRIN EC 81 MG TABLET PO SCH (10:10)
[2018-12-28] MEDS: ROSUVASTATIN 20 MG TABLET PO SCH (10:13)
[2018-12-28] MEDS: ALLOPURINOL 100 MG TABLET PO SCH ×2 (10:13→20:22)
[2018-12-28] MEDS: FERROUS GLUCONATE 324 MG TABLET PO SCH ×2 (10:14→20:21)
[2018-12-28] MEDS: FERROUS SULFATE 325 MG TABLET PO SCH (10:15)
[2018-12-28] MEDS: CHOLECALCIFEROL 1,000 UNIT TABLET PO SCH (10:16)
[2018-12-28] MEDS: carvediloL 3.125 MG TABLET PO SCH ×2 (10:16→20:22)
[2018-12-28] MEDS: APIXABAN 5 MG TABLET PO SCH ×2 (10:17→20:22)
[2018-12-28] MEDS: DOCUSATE SODIUM 100 MG CAPSULE PO SCH (10:19)
[2018-12-28] MEDS: LOSARTAN 25 MG TABLET PO SCH ×2 (10:19→20:22)
[2018-12-28] MEDS: sitaGLIPtin 100 MG TABLET PO SCH (10:19)
[2018-12-28] MEDS: PANTOPRAZOLE 40 MG TABLET PO SCH (10:20)
[2018-12-28] MEDS: VITAMIN E 400 UNIT CAPSULE PO SCH (10:21)
[2018-12-28] MEDS: oxyCODONE/ACETAMINOPHEN 5-325 MG TABLET PO PRN ×2 (10:21→20:23)
[2018-12-28] MEDS: CHLORHEXIDINE 0.12% ORAL RINSE 60 ML BOTTLE SWISH/SPIT SCH ×2 (10:25→20:23)
[2018-12-28] MEDS: INSULIN GLARGINE 100 UNIT/ML SUBCUT SCH (20:20)
[2018-12-28] MEDS: DOXAZOSIN 4 MG TABLET PO SCH (20:21)
[2018-12-28] MEDS: FEXOFENADINE 180 MG TABLET PO SCH (20:21)
[2018-12-28] MEDS: MONTELUKAST 10 MG TABLET PO SCH (20:22)
[2018-12-29] MEDS: ALBUTEROL/IPRATROPIUM 3 ML NEB RESP TX SCH ×3 (00:07→15:15)
[2018-12-29] MEDS: INSULIN REGULAR 100 UNIT/ML SUBCUT SCH ×4 (09:22→21:37)
[2018-12-29] MEDS: carvediloL 3.125 MG TABLET PO SCH ×2 (09:23→21:32)
[2018-12-29] MEDS: ASPIRIN EC 81 MG TABLET PO SCH (09:23)
[2018-12-29] MEDS: FERROUS SULFATE 325 MG TABLET PO SCH (09:23)
[2018-12-29] MEDS: DOCUSATE SODIUM 100 MG CAPSULE PO SCH (09:23)
[2018-12-29] MEDS: glipiZIDE 10 MG TABLET PO SCH (09:23)
[2018-12-29] MEDS: CHLORHEXIDINE 0.12% ORAL RINSE 60 ML BOTTLE SWISH/SPIT SCH ×2 (09:23→21:36)
[2018-12-29] MEDS: FOLIC ACID 1 MG TABLET PO SCH (09:23)
[2018-12-29] MEDS: PANTOPRAZOLE 40 MG TABLET PO SCH (09:23)
[2018-12-29] MEDS: VITAMIN E 400 UNIT CAPSULE PO SCH (09:24)
[2018-12-29] MEDS: sitaGLIPtin 100 MG TABLET PO SCH (09:24)
[2018-12-29] MEDS: AMIODARONE 200 MG TABLET PO SCH ×2 (09:24→21:32)
[2018-12-29] MEDS: LOSARTAN 25 MG TABLET PO SCH ×2 (09:24→21:32)
[2018-12-29] MEDS: FERROUS GLUCONATE 324 MG TABLET PO SCH ×2 (09:24→21:46)
[2018-12-29] MEDS: APIXABAN 5 MG TABLET PO SCH ×2 (09:24→21:32)
[2018-12-29] MEDS: metFORMIN 500 MG TABLET PO SCH ×2 (09:24→21:31)
[2018-12-29] MEDS: CHOLECALCIFEROL 1,000 UNIT TABLET PO SCH (09:25)
[2018-12-29] MEDS: ROSUVASTATIN 20 MG TABLET PO SCH (09:25)
[2018-12-29] MEDS: ALLOPURINOL 100 MG TABLET PO SCH ×2 (09:25→21:32)
[2018-12-29] MEDS: oxyCODONE/ACETAMINOPHEN 5-325 MG TABLET PO PRN ×3 (11:40→21:33)
[2018-12-29] MEDS: ZALEPLON 5 MG CAPSULE PO PRN (21:32)
[2018-12-29] MEDS: DOXAZOSIN 4 MG TABLET PO SCH (21:33)
[2018-12-29] MEDS: MONTELUKAST 10 MG TABLET PO SCH (21:33)
[2018-12-29] MEDS: FEXOFENADINE 180 MG TABLET PO SCH (21:33)
[2018-12-29] MEDS: INSULIN GLARGINE 100 UNIT/ML SUBCUT SCH (21:35)
[2018-12-30] MEDS: ALBUTEROL/IPRATROPIUM 3 ML NEB RESP TX SCH ×3 (01:46→14:30)
[2018-12-30 05:38] LABS: Basophils % 0.1 % (0.0-0.8); Eosinophils # 0.1 10*3/uL (0.0-0.87); Eosinophils % 0.9 % (0.00-10.9); Hematocrit 27.9 VOL% (35.7-47.0); Hemoglobin 8.6 GM/DL (12.0-16.0); Immature Granulocytes % 1.6 %; Immature Granulocytes Absolute 0.11 #; Lymphocytes # 1.7 10*3/uL (1.4-4.0); Lymphocytes % 24.8 % (21.3-54.2); Mean Corpuscular HGB Conc 30.8 GM/DL (32-36); Mean Corpuscular Volume 94.9 FL (87-102); Mean Platelet Volume 9.3 FL (9.6-12.0); Neutrophils % 63.6 % (38.7-73.9); Platelet Count 274 T/CUMM (130-400); Red Blood Count 2.94 MC/CUMM (3.8-5.5); Red Cell Distribution Width 15.2 % (9.3-17.3); White Blood Count 6.9 T/CUMM (4-12)
[2018-12-30 05:56] LABS: Osmolality,Calculated 281.3 MOS/KG (273-304)
[2018-12-30] MEDS: INSULIN REGULAR 100 UNIT/ML SUBCUT SCH ×4 (08:17→21:06)
[2018-12-30] MEDS: VITAMIN E 400 UNIT CAPSULE PO SCH (08:17)
[2018-12-30] MEDS: FOLIC ACID 1 MG TABLET PO SCH (08:17)
[2018-12-30] MEDS: glipiZIDE 10 MG TABLET PO SCH (08:18)
[2018-12-30] MEDS: metFORMIN 500 MG TABLET PO SCH ×2 (08:18→21:04)
[2018-12-30] MEDS: FERROUS SULFATE 325 MG TABLET PO SCH (08:18)
[2018-12-30] MEDS: sitaGLIPtin 100 MG TABLET PO SCH (08:18)
[2018-12-30] MEDS: PANTOPRAZOLE 40 MG TABLET PO SCH (08:18)
[2018-12-30] MEDS: DOCUSATE SODIUM 100 MG CAPSULE PO SCH (08:18)
[2018-12-30] MEDS: FERROUS GLUCONATE 324 MG TABLET PO SCH ×2 (08:18→21:04)
[2018-12-30] MEDS: APIXABAN 5 MG TABLET PO SCH ×2 (08:18→21:05)
[2018-12-30] MEDS: CHOLECALCIFEROL 1,000 UNIT TABLET PO SCH (08:18)
[2018-12-30] MEDS: ROSUVASTATIN 20 MG TABLET PO SCH (08:18)
[2018-12-30] MEDS: LOSARTAN 25 MG TABLET PO SCH ×2 (08:18→21:05)
[2018-12-30] MEDS: AMIODARONE 200 MG TABLET PO SCH ×2 (08:18→21:04)
[2018-12-30] MEDS: CHLORHEXIDINE 0.12% ORAL RINSE 60 ML BOTTLE SWISH/SPIT SCH ×2 (08:19→21:06)
[2018-12-30] MEDS: ALLOPURINOL 100 MG TABLET PO SCH ×2 (08:19→21:05)
[2018-12-30] MEDS: carvediloL 3.125 MG TABLET PO SCH ×2 (08:19→21:05)
[2018-12-30] MEDS: ASPIRIN EC 81 MG TABLET PO SCH (08:19)
[2018-12-30] MEDS: oxyCODONE/ACETAMINOPHEN 5-325 MG TABLET PO PRN ×3 (10:37→21:05)
[2018-12-30] MEDS: FEXOFENADINE 180 MG TABLET PO SCH (21:04)
[2018-12-30] MEDS: ZALEPLON 5 MG CAPSULE PO PRN (21:04)
[2018-12-30] MEDS: DOXAZOSIN 4 MG TABLET PO SCH (21:05)
[2018-12-30] MEDS: MONTELUKAST 10 MG TABLET PO SCH (21:05)
[2018-12-30] MEDS: INSULIN GLARGINE 100 UNIT/ML SUBCUT SCH (21:06)
[2018-12-31] MEDS: ALBUTEROL/IPRATROPIUM 3 ML NEB RESP TX SCH ×4 (00:17→23:52)
[2018-12-31] MEDS: INSULIN REGULAR 100 UNIT/ML SUBCUT SCH ×4 (09:20→21:03)
[2018-12-31] MEDS: metFORMIN 500 MG TABLET PO SCH ×2 (10:03→20:59)
[2018-12-31] MEDS: glipiZIDE 10 MG TABLET PO SCH (10:05)
[2018-12-31] MEDS: FERROUS GLUCONATE 324 MG TABLET PO SCH ×2 (10:05→20:59)
[2018-12-31] MEDS: FOLIC ACID 1 MG TABLET PO SCH (10:05)
[2018-12-31] MEDS: POTASSIUM CHLORIDE 20 MEQ TABLET PO PRN ×2 (10:06→12:04)
[2018-12-31] MEDS: LOSARTAN 25 MG TABLET PO SCH ×2 (10:06→20:59)
[2018-12-31] MEDS: ROSUVASTATIN 20 MG TABLET PO SCH (10:06)
[2018-12-31] MEDS: DOCUSATE SODIUM 100 MG CAPSULE PO SCH (10:06)
[2018-12-31] MEDS: sitaGLIPtin 100 MG TABLET PO SCH (10:06)
[2018-12-31] MEDS: ALLOPURINOL 100 MG TABLET PO SCH ×2 (10:06→20:59)
[2018-12-31] MEDS: AMIODARONE 200 MG TABLET PO SCH ×2 (10:07→20:59)
[2018-12-31] MEDS: CHOLECALCIFEROL 1,000 UNIT TABLET PO SCH (10:07)
[2018-12-31] MEDS: APIXABAN 5 MG TABLET PO SCH ×2 (10:07→21:03)
[2018-12-31] MEDS: carvediloL 3.125 MG TABLET PO SCH ×2 (10:07→20:59)
[2018-12-31] MEDS: PANTOPRAZOLE 40 MG TABLET PO SCH (10:07)
[2018-12-31] MEDS: ASPIRIN EC 81 MG TABLET PO SCH (10:07)
[2018-12-31] MEDS: FERROUS SULFATE 325 MG TABLET PO SCH (10:07)
[2018-12-31] MEDS: VITAMIN E 400 UNIT CAPSULE PO SCH (10:08)
[2018-12-31] MEDS: CHLORHEXIDINE 0.12% ORAL RINSE 60 ML BOTTLE SWISH/SPIT SCH ×2 (10:23→21:04)
[2018-12-31] MEDS: oxyCODONE/ACETAMINOPHEN 5-325 MG TABLET PO PRN ×2 (13:48→20:58)
[2018-12-31] MEDS: INSULIN GLARGINE 100 UNIT/ML SUBCUT SCH ×2 (18:16→21:04)
[2018-12-31] MEDS: DOXAZOSIN 4 MG TABLET PO SCH (20:58)
[2018-12-31] MEDS: ZALEPLON 5 MG CAPSULE PO PRN (20:59)
[2018-12-31] MEDS: FEXOFENADINE 180 MG TABLET PO SCH (20:59)
[2018-12-31] MEDS: MONTELUKAST 10 MG TABLET PO SCH (20:59)
[2019-01-01] MEDS: ALBUTEROL/IPRATROPIUM 3 ML NEB RESP TX SCH ×3 (07:44→22:35)
[2019-01-01] MEDS: INSULIN REGULAR 100 UNIT/ML SUBCUT SCH ×4 (09:04→21:30)
[2019-01-01] MEDS: VITAMIN E 400 UNIT CAPSULE PO SCH (09:05)
[2019-01-01] MEDS: LOSARTAN 25 MG TABLET PO SCH ×2 (09:05→21:29)
[2019-01-01] MEDS: ROSUVASTATIN 20 MG TABLET PO SCH (09:05)
[2019-01-01] MEDS: metFORMIN 500 MG TABLET PO SCH ×2 (09:05→21:30)
[2019-01-01] MEDS: sitaGLIPtin 100 MG TABLET PO SCH (09:05)
[2019-01-01] MEDS: FOLIC ACID 1 MG TABLET PO SCH (09:05)
[2019-01-01] MEDS: carvediloL 3.125 MG TABLET PO SCH ×2 (09:05→21:29)
[2019-01-01] MEDS: ASPIRIN EC 81 MG TABLET PO SCH (09:06)
[2019-01-01] MEDS: APIXABAN 5 MG TABLET PO SCH ×2 (09:06→21:29)
[2019-01-01] MEDS: glipiZIDE 10 MG TABLET PO SCH (09:06)
[2019-01-01] MEDS: AMIODARONE 200 MG TABLET PO SCH ×2 (09:06→21:29)
[2019-01-01] MEDS: CHOLECALCIFEROL 1,000 UNIT TABLET PO SCH (09:06)
[2019-01-01] MEDS: FERROUS GLUCONATE 324 MG TABLET PO SCH ×2 (09:06→21:29)
[2019-01-01] MEDS: FERROUS SULFATE 325 MG TABLET PO SCH (09:06)
[2019-01-01] MEDS: CHLORHEXIDINE 0.12% ORAL RINSE 60 ML BOTTLE SWISH/SPIT SCH ×2 (09:06→21:36)
[2019-01-01] MEDS: DOCUSATE SODIUM 100 MG CAPSULE PO SCH (09:06)
[2019-01-01] MEDS: ALLOPURINOL 100 MG TABLET PO SCH ×2 (09:06→21:28)
[2019-01-01] MEDS: PANTOPRAZOLE 40 MG TABLET PO SCH (09:06)
[2019-01-01] MEDS: oxyCODONE/ACETAMINOPHEN 5-325 MG TABLET PO PRN ×2 (09:25→21:28)
[2019-01-01] MEDS: MONTELUKAST 10 MG TABLET PO SCH (21:28)
[2019-01-01] MEDS: FEXOFENADINE 180 MG TABLET PO SCH (21:29)
[2019-01-01] MEDS: ZALEPLON 5 MG CAPSULE PO PRN (21:29)
[2019-01-01] MEDS: INSULIN GLARGINE 100 UNIT/ML SUBCUT SCH (21:30)
[2019-01-01] MEDS: DOXAZOSIN 4 MG TABLET PO SCH (21:36)
[2019-01-02] MEDS: ALBUTEROL/IPRATROPIUM 3 ML NEB RESP TX SCH ×3 (06:53→23:39)
[2019-01-02] MEDS: INSULIN REGULAR 100 UNIT/ML SUBCUT SCH ×4 (08:48→22:15)
[2019-01-02] MEDS: sitaGLIPtin 100 MG TABLET PO SCH (08:49)
[2019-01-02] MEDS: carvediloL 3.125 MG TABLET PO SCH ×2 (08:49→21:45)
[2019-01-02] MEDS: DOCUSATE SODIUM 100 MG CAPSULE PO SCH (08:49)
[2019-01-02] MEDS: glipiZIDE 10 MG TABLET PO SCH (08:49)
[2019-01-02] MEDS: AMIODARONE 200 MG TABLET PO SCH ×2 (08:50→21:45)
[2019-01-02] MEDS: ROSUVASTATIN 20 MG TABLET PO SCH (08:50)
[2019-01-02] MEDS: metFORMIN 500 MG TABLET PO SCH ×2 (08:50→21:44)
[2019-01-02] MEDS: VITAMIN E 400 UNIT CAPSULE PO SCH (08:50)
[2019-01-02] MEDS: FERROUS SULFATE 325 MG TABLET PO SCH (08:51)
[2019-01-02] MEDS: PANTOPRAZOLE 40 MG TABLET PO SCH (08:51)
[2019-01-02] MEDS: FERROUS GLUCONATE 324 MG TABLET PO SCH ×2 (08:51→21:44)
[2019-01-02] MEDS: LOSARTAN 25 MG TABLET PO SCH ×2 (08:51→21:45)
[2019-01-02] MEDS: CHOLECALCIFEROL 1,000 UNIT TABLET PO SCH (08:51)
[2019-01-02] MEDS: APIXABAN 5 MG TABLET PO SCH ×2 (08:51→21:45)
[2019-01-02] MEDS: ASPIRIN EC 81 MG TABLET PO SCH (08:51)
[2019-01-02] MEDS: FOLIC ACID 1 MG TABLET PO SCH (08:51)
[2019-01-02] MEDS: ALLOPURINOL 100 MG TABLET PO SCH ×2 (08:51→21:45)
[2019-01-02] MEDS: CHLORHEXIDINE 0.12% ORAL RINSE 60 ML BOTTLE SWISH/SPIT SCH ×2 (08:52→21:49)
[2019-01-02] MEDS: oxyCODONE/ACETAMINOPHEN 5-325 MG TABLET PO PRN ×2 (11:00→22:22)
[2019-01-02] MEDS: DOXAZOSIN 4 MG TABLET PO SCH (21:44)
[2019-01-02] MEDS: FEXOFENADINE 180 MG TABLET PO SCH (21:44)
[2019-01-02] MEDS: INSULIN GLARGINE 100 UNIT/ML SUBCUT SCH (21:45)
[2019-01-02] MEDS: MONTELUKAST 10 MG TABLET PO SCH (21:45)
[2019-01-02] MEDS: ZALEPLON 5 MG CAPSULE PO PRN (22:22)
[2019-01-03] MEDS: ALBUTEROL/IPRATROPIUM 3 ML NEB RESP TX SCH ×2 (06:58→14:50)
[2019-01-03] MEDS: INSULIN REGULAR 100 UNIT/ML SUBCUT SCH ×4 (08:51→21:48)
[2019-01-03] MEDS: VITAMIN E 400 UNIT CAPSULE PO SCH (08:52)
[2019-01-03] MEDS: FOLIC ACID 1 MG TABLET PO SCH (08:53)
[2019-01-03] MEDS: ROSUVASTATIN 20 MG TABLET PO SCH (08:53)
[2019-01-03] MEDS: DOCUSATE SODIUM 100 MG CAPSULE PO SCH (08:53)
[2019-01-03] MEDS: ALLOPURINOL 100 MG TABLET PO SCH ×2 (08:53→21:42)
[2019-01-03] MEDS: glipiZIDE 10 MG TABLET PO SCH (08:53)
[2019-01-03] MEDS: metFORMIN 500 MG TABLET PO SCH ×2 (08:53→21:41)
[2019-01-03] MEDS: PANTOPRAZOLE 40 MG TABLET PO SCH (08:53)
[2019-01-03] MEDS: CHOLECALCIFEROL 1,000 UNIT TABLET PO SCH (08:54)
[2019-01-03] MEDS: FERROUS GLUCONATE 324 MG TABLET PO SCH ×2 (08:54→21:41)
[2019-01-03] MEDS: FERROUS SULFATE 325 MG TABLET PO SCH (08:54)
[2019-01-03] MEDS: APIXABAN 5 MG TABLET PO SCH ×2 (08:54→21:41)
[2019-01-03] MEDS: carvediloL 3.125 MG TABLET PO SCH ×2 (08:54→21:41)
[2019-01-03] MEDS: AMIODARONE 200 MG TABLET PO SCH ×2 (08:54→21:41)
[2019-01-03] MEDS: ASPIRIN EC 81 MG TABLET PO SCH (08:54)
[2019-01-03] MEDS: sitaGLIPtin 100 MG TABLET PO SCH (08:54)
[2019-01-03] MEDS: LOSARTAN 25 MG TABLET PO SCH ×2 (08:54→21:41)
[2019-01-03] MEDS: CHLORHEXIDINE 0.12% ORAL RINSE 60 ML BOTTLE SWISH/SPIT SCH ×2 (08:55→21:48)
[2019-01-03] MEDS: oxyCODONE/ACETAMINOPHEN 5-325 MG TABLET PO PRN ×2 (11:53→21:40)
[2019-01-03] MEDS: DOXAZOSIN 4 MG TABLET PO SCH (21:41)
[2019-01-03] MEDS: FEXOFENADINE 180 MG TABLET PO SCH (21:41)
[2019-01-03] MEDS: ZALEPLON 5 MG CAPSULE PO PRN (21:41)
[2019-01-03] MEDS: MONTELUKAST 10 MG TABLET PO SCH (21:41)
[2019-01-03] MEDS: INSULIN GLARGINE 100 UNIT/ML SUBCUT SCH (21:47)
[2019-01-04] MEDS: ALBUTEROL/IPRATROPIUM 3 ML NEB RESP TX SCH ×2 (00:38→08:32)
[2019-01-04] MEDS: INSULIN REGULAR 100 UNIT/ML SUBCUT SCH ×2 (07:54→12:39)
[2019-01-04] MEDS: CHLORHEXIDINE 0.12% ORAL RINSE 60 ML BOTTLE SWISH/SPIT SCH (08:55)
[2019-01-04] MEDS: AMIODARONE 200 MG TABLET PO SCH (08:56)
[2019-01-04] MEDS: VITAMIN E 400 UNIT CAPSULE PO SCH (08:56)
[2019-01-04] MEDS: sitaGLIPtin 100 MG TABLET PO SCH (08:57)
[2019-01-04] MEDS: metFORMIN 500 MG TABLET PO SCH (08:58)
[2019-01-04] MEDS: ROSUVASTATIN 20 MG TABLET PO SCH (08:59)
[2019-01-04] MEDS: ALLOPURINOL 100 MG TABLET PO SCH (08:59)
[2019-01-04] MEDS: FOLIC ACID 1 MG TABLET PO SCH (08:59)
[2019-01-04] MEDS: carvediloL 3.125 MG TABLET PO SCH (08:59)
[2019-01-04] MEDS: FERROUS SULFATE 325 MG TABLET PO SCH (09:00)
[2019-01-04] MEDS: ASPIRIN EC 81 MG TABLET PO SCH (09:00)
[2019-01-04] MEDS: DOCUSATE SODIUM 100 MG CAPSULE PO SCH (09:00)
[2019-01-04] MEDS: FERROUS GLUCONATE 324 MG TABLET PO SCH (09:00)
[2019-01-04] MEDS: APIXABAN 5 MG TABLET PO SCH (09:00)
[2019-01-04] MEDS: LOSARTAN 25 MG TABLET PO SCH (09:00)
[2019-01-04] MEDS: glipiZIDE 10 MG TABLET PO SCH (09:01)
[2019-01-04] MEDS: PANTOPRAZOLE 40 MG TABLET PO SCH (09:01)
[2019-01-04] MEDS: CHOLECALCIFEROL 1,000 UNIT TABLET PO SCH (09:01)
[2019-01-04] MEDS: oxyCODONE/ACETAMINOPHEN 5-325 MG TABLET PO PRN (10:46)
[2019-01-04 12:08] VITALS: BP 108/56
== END 2019-01-04 12:46 | disposition home health service (06) | DRG 234 ==
LOC: N.EDINP 09:11 → N.ED 09:11 → SUATTDRO 11:21 → N.TELES 12:13 → SUATTDRO 12-21 12:13 → N.CVR 12-22 11:10 → N.TELES 12-23 10:09
PROVIDERS: ADMIT Internal Medicine Cardiovascular Disease
PROC: CLCCHCL (ICD-10-PCS; 2018-12-21 11:15)